=== PATIENT | male | born 2005 | race Caucasian/White ===

== ENCOUNTER 2023-09-24 12:40 | Emergency (ER) | payer MEDICAID, OTHER ==
[~2023-09-24] VITALS: Ht 182.9 cm; Wt 76.7 kg
[~2023-09-24 12:40] MED LIST: AMOX875T4 PO; CYCL-837 PO; IBUP-1454 PO
[2023-09-24 16:10] VITALS: BP 114/59; PULSE 69; RESP 18; TEMP 98; O2SAT 100
== END 2023-09-24 16:35 | disposition home or self-care (01) ==
LOC: ER 12:40
DX: S40.212D Abrasion of left shoulder, subsequent encounter (principal); S20.412D Abrasion of left back wall of thorax, subsequent encounter; Z48.00 Encounter for change or removal of nonsurgical wound dressing; Z79.899 Other long term (current) drug therapy; V29.99XD Rider (driver) (passenger) of other motorcycle injured in unspecified traffic accident, subsequent encounter